=== PATIENT | female | born 1940 | race Caucasian/White ===

== ENCOUNTER 2023-06-18 07:30 | Inpatient (IN) ==
[~2023-06-18 07:30] MED LIST: Metoclopramide 5 MG/ML VIAL (10 mg) IV PRN; NS 0.45% 1000 ml BAG 1,000 ML IV SCH; Naloxone 0.4 mg VIAL 0.4 mg/ml 1 ml VIAL IV PRN; Ondansetron 4 mg VIAL 2 MG/ML 2 ml VIAL IV PRN; fentaNYL 100 mcg/2 ml 50 MCG/ML VIAL IV PRN
[2023-06-18] MEDS: Acetaminophen IV 1 GM/100ML 1,000 MG/100 ML BAG IV ONE (10:11)
[2023-06-18] MEDS: Buffered Lidocaine 1% SYRIN 1 ml INTRADERM ONE (10:12)
[2023-06-18] MEDS: Scopolamine 1 mg/72hr PATCH TRANSDERM ONE (10:12)
[2023-06-18] MEDS ORDERED: ceFAZolin 2 GM PREMIX 2 GM/50 ML BAG ONE (10:16)
[2023-06-18] MEDS ORDERED: Tranexamic Acid 1 GM/100ML BAG 2,000 MG/200 ML BAG IV ONE (10:17)
[2023-06-18 10:24] LABS: Rapid COVID-19 Molecular Undetected (Undetected)
[2023-06-18] MEDS: Lactated Ringers 1000 ml BAG 1,000 ML IV SCH ×2 (10:27→17:50)
[2023-06-18] MEDS ORDERED: Midazolam 2 mg/2 ml VIAL 1 mg/ml 2 ml VIAL (2 mg) ONE (11:07)
[2023-06-18] MEDS ORDERED: Propofol 10 MG/ML 20 ML BTL ONE (11:12)
[2023-06-18] MEDS ORDERED: ROPIVACAINE 5 MG/ML 30 ML BTL (0.5%) ONE (12:44)
[2023-06-18] MEDS ORDERED: Dexamethasone IV 4 MG/ML VIAL 1 ml VIAL ONE (13:20)
[2023-06-18] MEDS ORDERED: Ondansetron 4 mg VIAL 2 MG/ML 2 ml VIAL ONE (13:20)
[2023-06-18] MEDS ORDERED: Phenylephrine IV 10 MG/ML 1 ml VIAL ONE (13:37)
[2023-06-18] MEDS ORDERED: Magnesium Hydroxide LIQ 30 ML UDC PO PRN (14:02)
[2023-06-18] MEDS ORDERED: Ondansetron 4 mg VIAL 2 MG/ML 2 ml VIAL IV PRN (14:02)
[2023-06-18] MEDS ORDERED: Lactulose 30 ml UDC PO PRN (14:02)
[2023-06-18] MEDS ORDERED: Morphine 2 MG/ML SYRINGE IV PRN (14:02)
[2023-06-18] MEDS ORDERED: Ondansetron ODT 4 mg TAB 4 MG TAB PO PRN (14:02)
[2023-06-18] MEDS: Cyclosporine 0.05% OPHTH (NF) 0.4 ML VIAL BOTH EYES SCH (19:23)
[2023-06-18] MEDS: ceFAZolin 1 GM ADVAN 1 GM in NS 0.9% 50 ML 50 ML IVPB SCH (22:23)
[2023-06-18] MEDS: Magnesium Hydroxide LIQ 30 ML UDC PO SCH (22:24)
[2023-06-18] MEDS: Psyllium PAK PO SCH (22:31)
[2023-06-19 05:40] LABS: Mean Platelet Volume 7.4 fL (7.5-11.2); Platelet Count 206 10^3/uL (150-450)
[2023-06-19 07:00] LABS: Calcium 8.3 mg/dL (8.6-10.3); Creatinine, Serum 0.67 mg/dL (0.51-0.95); Potassium 4.3 mmol/L (3.5-5.0); eGFR CKD-EPI 88.3 (>60)
[2023-06-19] MEDS: Vitamin THERAPEUTIC TAB PO SCH (09:10)
[2023-06-19] MEDS: Lactated Ringers 1000 ml BAG 500 ML IV ONE (10:11)
[2023-06-19 13:51] VITALS: BP 109/47
== END 2023-06-19 14:45 | disposition home or self-care (01) | DRG 470 ==
LOC: AA → INTOOBSV 09:41 → AA 09:41 → SSU 14:02
PROVIDERS: ADMIT Orthopaedic Surgery Adult Reconstructive Orthopaedic Surgery; ATTEND Orthopaedic Surgery Adult Reconstructive Orthopaedic Surgery